=== PATIENT | male | born 1970 | race African-American/Black ===

== ENCOUNTER 2018-08-22 06:38 | Day surgery (SDC) | payer BC ==
[2018-08-21 15:48] VITALS: BMI 16.7
[2018-08-22] MEDS ORDERED: LIDOCAINE HCL 1%, 10 MG/ML (20ML VIAL) ONE (07:21)
[2018-08-22] MEDS ORDERED: BUPIVACAINE HCL/PF 0.5% (5MG/ML) 10 ML VIAL ONE (07:21)
--- NOTE | 2018-08-22 07:57 | OP ---
Operative Note - Note: Operative Date: 08/22/18 Pre-Operative Diagnosis: elective sterilization Operation: bilat vasectomy Post-Operative Diagnosis: Same as Pre-op Surgeon: Gordo May Anesthesiologist/STIFF NECK LOADER: Alicia Wells MD Anesthesia: General, Local Specimens Removed: portion of bilat vas deferens Estimated Blood Loss (mls): 0 Operative Report Dictated: Yes
[2018-08-22] MEDS ORDERED: MIDAZOLAM HCL 2 MG/2 ML SINGLE DOSE VIAL ONE ×2 (08:04)
[2018-08-22] MEDS ORDERED: SUCCINYLCHOLINE CHLORIDE 200 MG/10 ML VIAL ONE (08:11)
[2018-08-22] MEDS ORDERED: PROPOFOL 20 ML ONE (08:11)
[2018-08-22] MEDS ORDERED: ceFAZolin SODIUM 1 GM VIAL IVPB ONE (08:13)
[2018-08-22] MEDS ORDERED: BUPIVACAINE HCL/PF 0.5% (5MG/ML) 10 ML VIAL IJ ONE (08:22)
--- NOTE | 2018-08-22 09:08 | OP ---
DATE OF OPERATION: 08/22/2018 PREOPERATIVE DIAGNOSIS: Elective sterilization. POSTOPERATIVE DIAGNOSIS: Elective sterilization. PRODEDURE: Bilateral vasectomy. SURGEON: Gordo Loya MD WEB CONTENT DEVELOPER: None. ANESTHESIA: General via laryngeal mask plus local. ANESTHESIOLOGIST: Alicia Wells MD SPECIMENS: A portion of bilateral vas deferens. CULTURES: None. DRAINS: None. ESTIMATED BLOOD LOSS: Negligible. COMPLICATIONS: None. PROCEDURE WAS FOLLOWS: Patient was brought into the operating room, placed on the operating table in the supine position. After administration of general anesthesia via laryngeal mask, intravenous antibiotics were administered. The genitals were shaved first and prepped and draped in the usual sterile manner. Then, 5 mL of 0.5% Marcaine was injected into the neck of the scrotum on each side for cord block. The right vas deferens was now isolated between thumb and forefinger, and the skin was incised for a distance of 1 cm overlying the vas deferens, carried down to the dartos layer. The vas deferens was grasped with a vas deferens clamp and elevated. The sheath was incised longitudinally, and then, using a mosquito clamp, it was dissected free and then divided between clamps. A segment was excised, sent to Pathology as specimen. The lumen of the vas deferens was cauterized with a needle-tipped Bovie proximally and distally. Both cut ends were now ligated with 0 Vicryl ligatures. Hemostasis was fully assured. The wound was closed with interrupted 4-0 chromic vertical mattress suture. In identical manner, the left vasectomy was done. Dermabond was applied, fluffs and scrotal support. He tolerated the procedure well, transferred to the recovery room in stable condition. GORDO LOYA M.D. [id number]
[2018-08-22] MEDS ORDERED: oxyCODONE HCL 5 MG TABLET PO PRN (09:23)
[2018-08-22] MEDS ORDERED: ONDANSETRON 4 MG/2 ML VIAL IVPUSH PRN (09:23)
[2018-08-22] MEDS ORDERED: ACETAMINOPHEN 1000 MG/100 ML VIAL (NON FORMULARY) IVPB ONE (09:23)
[2018-08-22] MEDS ORDERED: LACTATED RINGERS SOLUTION 1,000 ML IV SCH (09:30)
[2018-08-22] MEDS ORDERED: ACETAMINOPHEN INJECTION 100 ML IVPB ONE (09:33)
[2018-08-22 12:15] VITALS: BP 119/80; PULSE 62; TEMP 97.9
--- NOTE | 2018-08-25 17:29 | PATH ---
Surgical Pathology Report Patient Name: URIEL ROWLAND [facility]. Rec. #: [id number] /Age/Gender: 1970 (Age: 47) / M Account: [id number] Location: [facility] Taken: 08/22/2018 Received: 08/22/2018 Reported: 08/25/2018 Physicians: Gordo May M.D. Specimen(s) Received A: LEFT PORTION OF THE VAS DEFERENS,STERILIZATION B: RIGHT PORTION OF VAS DEFERENS,STERILIZATION Clinical History Sterilization Final Diagnosis A. VAS DEFERENS, LEFT, VASECTOMY: FULL LUMINAL PORTION OF UNREMARKABLE VAS DEFERENS B. VAS DEFERENS, RIGHT, VASECTOMY: FULL LUMINAL PORTION OF UNREMARKABLE VAS DEFERENS Electronically Signed Grisel Burt M.D. Gross Description A. Received in formalin labeled "left portion of vas deferens," is a 0.6 cm in length portion of vas deferens. The specimen is bisected and entirely submitted in one cassette. B. Received in formalin labeled "right portion of vas deferens," is a 0.3 cm in length portion of vas deferens. The specimen is submitted in toto in one cassette. /08/22/2018
== END 2018-08-22 11:45 | disposition home or self-care (01) ==
LOC: JASU-SURG 06:38 → EDBD 08:00 → JASU-SURG 11:45
PROVIDERS: ATTEND Urology
PROC: 0VTQ0ZZ Resection of Bilateral Vas Deferens, Open Approach (ICD-10-PCS; principal; 2018-08-22 08:00)
DX: Z30.2 Encounter for sterilization (principal)
CPT/HCPCS: 88302-TC; 94760; J0131